=== PATIENT | male | born 2000 | race Caucasian/White ===

== ENCOUNTER 2024-11-22 15:37 | Outpatient (CLI) | payer BC, SELFPAY | END 2024-11-22 15:38 | disposition home or self-care (01) | PROVIDERS: PCP Nurse Practitioner Family; Visit Provider Nurse Practitioner Family | DX: R10.31 Right lower quadrant pain (principal) | CPT/HCPCS: 80048; 85025 ==

== ENCOUNTER 2024-11-23 08:52 | Outpatient (CLI) | payer BC, SELFPAY | END 2024-11-23 08:53 | disposition home or self-care (01) | LOC: KYNREF 08:52 | PROVIDERS: PCP Nurse Practitioner Family; Visit Provider Nurse Practitioner Family | DX: R10.31 Right lower quadrant pain (principal); R82.90 Unspecified abnormal findings in urine | CPT/HCPCS: 81001; 87086 ==

== ENCOUNTER 2024-12-03 15:47 | Outpatient (CLI) | payer BC, SELFPAY ==
--- NOTE | 2024-12-03 16:00 | CRLHL7_ITS ---
For Patients: As a result of the Century Cures Act, medical imaging exams and procedure reports are released immediately into your electronic medical record. You may view this report before your referring provider. If you have questions, please contact your health care provider. INDICATION: Abdominal pain. TECHNIQUE: CT abdomen and pelvis without contrast. COMPARISON: None. FINDINGS: Lower chest: Unremarkable. Liver: Normal in size and attenuation. No suspicious masses. Gallbladder and bile ducts: No stones or inflammation. No biliary dilatation. Pancreas: Unremarkable. No mass or inflammation. Spleen: Normal in size. Small splenule. No masses. Adrenal glands: Normal in size. No nodules. Kidneys: Normal in size. Distal right ureteral calcified stone measuring up to 7 mm with associated mild upstream periureteral inflammatory changes (70, 2/130). No substantial hydronephrosis. Bilateral nonobstructive renal calcifications as well, the largest of which is on the right measuring up to 5 mm (). GI tract: Unremarkable. Normal in caliber. No sign of mass or inflammation. Normal appendix. Vasculature: Abdominal aorta is normal in caliber. Lymph nodes: No lymphadenopathy. Peritoneum/Abdominal Wall: Unremarkable. No sign of mass or infiltration. No free air or significant free fluid. Pelvis: Bladder is unremarkable. Prostate is unremarkable. Bones: Unremarkable for age. IMPRESSION: Distal right ureteral calcified stone measuring up to 7 mm near the UVJ. Associated mild right periureteral inflammatory changes, but no substantial hydronephrosis. Bilateral nonobstructive renal calcifications as well. Please note that all CT scans at this facility use dose modulation, iterative reconstruction, and/or weight-based dosing when appropriate to reduce radiation dose to as low as reasonably achievable. Dictated by Ancelmo Luna MD @ 12/04/2024 9:20:44 PM (Electronically Signed)
== END 2024-12-03 15:48 | disposition home or self-care (01) ==
LOC: CT 15:48
PROVIDERS: PCP Nurse Practitioner Family; Visit Provider Nurse Practitioner Family
DX: R10.31 Right lower quadrant pain (principal); N20.2 Calculus of kidney with calculus of ureter
CPT/HCPCS: 74176

== ENCOUNTER 2024-12-20 08:15 | Outpatient (CLI) | payer BC, SELFPAY | END 2024-12-20 08:16 | disposition home or self-care (01) | LOC: KYNREF 08:17 | PROVIDERS: PCP Nurse Practitioner Family; Visit Provider Nurse Practitioner Family | DX: R10.31 Right lower quadrant pain (principal); R82.90 Unspecified abnormal findings in urine | CPT/HCPCS: 81001; 87086 ==

== ENCOUNTER 2024-12-22 17:21 | Emergency (ER) | payer BC, SELFPAY ==
--- OUTSIDE RECORDS SUMMARY | 2024-12-22 17:23 | XMS_ITS | Data Portability ---
Author Organization [facility], [facility] Address [address] [place] [address] Care Team Providers Care Group Captain Name Role Phone [facility] Primary Care Provider Assessment No assessment recorded. Plan of Treatment Reminders Order Date Submit Date Provider Last Modified By Organization Details Last Modified Time Details Appointments H[facility] 60 2024 10:00A M Curt Glibert MD Not available Not available Not available Lab None recorded. Referral None recorded. Procedures None recorded. Surgeries cystoscop y, with ureterosc opy, with lithotrip sy, with insertion of ureteral stent (SURG) 2024 025 [email or web address] Not available 12/17/2024 13:09:58 Imaging None recorded. Medication Orders tamsulosi n 0.4 mg capsule 2024 025 [id number], [address] [place], [place], [id number], 12/17/2024 11:01:37 Patient TargetsNo targets recorded. Patient InstructionsNo instructions recorded. Reason for Referral None Reported. Problems Name Problem SNOMED Code Status Onset Date Resolution Date Notes Provider Name and Address Organization Details Recorded Time Recurrent kidney stone 89656780925668 02 Active 2024 SARAH CANDELARIO PA-C [address] [place] [address],[facility] [address], [place], [address], [place] [facility] 11:00:44 Ureteric stone 60475132 Active 2024 SARAH CANDELARIO PA-C [address] [place] [address] [address], [place], [address] 11:14:05 Problem Notes None recorded. Medical Equipment None Reported. Allergies No known drug allergies Medications Name Sig Start Date Stop Date Status Note LastModified by Organization Details LastModified Time hydrocodone 5 mg-acetamin ophen 325 mg tablet TAKE 1 TABLET BY MOUTH EVERY 4 TO 6 HOURS NEEDED FOR PAIN FOR 7 DAYS 12/17 completed Not Available Not Available Not Available amoxicillin 500 mg tablet TAKE 1 TABLET BY MOUTH THREE TIMES DAILY UNTIL GONE 12/17 completed Not Available Not Available Not Available tamsulosin 0.4 mg capsule Take 1 capsule every day by oral route with meal(s) for 30 days, for kidney stone passing. 2024 active Not Available Not Available Not Avai lable ibuprofen 600 mg tablet TAKE 1 TABLET BY MOUTH EVERY 6 TO 8 HOURS NEEDED active Not Available Not Available No t Available methylpredn isolone 4 mg tablets in a dose pack FOLLOW PACKAGE DIRECTION S 12/17 completed Not Available Not Available Not Available ondansetron 4 mg disintegrat ing tablet DISSOLVE 1 TABLET ON THE TONGUE EVERY 6 TO 8 HOURS NEEDED FOR NAUSEA OR VOMITING 12/17 completed Not Available Not Available Not Available Vitals Date Recorded Body height Body mass index (BMI) Body weight Provider Name and Address Organization Details Last Updated DateTime 12/17/2024 170.18 cm 25.1 kg/m2 20983.78 g Edelmira Raya [facility] 12/17/2024 10:38:25 Social History Question Answer Notes LastModified by Organizat ion Details LastModified Time Tobacco Smoking Status Never Smoker Edelmira Raya [facility] 12/17/2024 10:39:26 What Is Your Level Of Alcohol Consumption? Occasional Information not available 12/17/2024 What Is Your Level Of Caffeine Consumption? Occasional Information not available 12/17/2024 What Was The Date Of Your Most Recent Tobacco Screening? 12/17/2024 Information not available 12/17/2024 Have You Ever Been Counseled For Unhealthy Alcohol Use? No Information not available 12/17/2024 Do You Use Any Illicit Or Recreational Drugs? No Information not available 12/17/2024 Has Tobacco Cessation Counseling Been Provided? No Information not available 12/17/2024 Do You Or Have You Ever Used Any Other Forms Of Tobacco Or Nicotine? No Information not available 12/17/2024 Sex: Unknown Functional Status None recorded. Mental Status None recorded. Family History Relationship Description Onset Age of this Age Resolved Age Notes LastModified by Organization Details LastModified Time Father No current problems or disability Not available 12/17 10:39:06 Mother No current problems or disability Not available 12/17 10:39:06 Medical History Condition Response Sexually Transmitted Infection N Diabetes N Other N Bleeding Disorder N High Blood Pressure N Kidney Stones Y High Cholesterol N GERD/Acid Reflux N Heart Disease N Cancer N Depression N Lung Disease N Immunizations Vaccine Type Date Status Note Provider Nam e and Address Organization Details Recorded Time Influenza, split virus, trivalent, preservative 1 completed Not Available [facility] 12/17/2024 10:14:16 Hep B, adolescent or pediatric 8 completed Not Available [facility] 12/17/2024 10:14:16 DTaP 9 completed Not Available [facility] 12/17/2024 10:14:16 Hep B, adolescent or pediatric 9 completed Not Available [facility] 12/17/2024 10:14:16 Hib, unspecified formulation 9 completed Not Available [facility] 12/17/2024 10:14:16 IPV 9 completed Not Available [facility] 12/17/2024 10:14:16 rotavirus, pentavalent 9 completed Not Available [facility] 12/17/2024 10:14:16 rotavirus, pentavalent 9 completed Not Available [facility] 12/17/2024 10:14:16 DTaP 9 completed Not Available [facility] 12/17/2024 10:14:16 Hib (PRP-T) 9 completed Not Available [facility] 12/17/2024 10:14:16 IPV 9 completed Not Available [facility] 12/17/2024 10:14:16 rotavirus, pentavalent 9 completed Not Available [facility] 12/17/2024 10:14:16 DTaP 9 completed Not Available [facility] 12/17/2024 10:14:16 Hib (PRP-T) 9 completed Not Available [facility] 12/17/2024 10:14:16 Hep B, adolescent or pediatric 9 completed Not Available [facility] 12/17/2024 10:14:16 MMR 9 completed Not Available [facility] 12/17/2024 10:14:16 varicella 9 completed Not Available [facility] 12/17/2024 10:14:16 DTaP-Hib 0 completed Not Available [facility] 12/17/2024 10:14:16 IPV 0 completed Not Available [facility] 12/17/2024 10:14:16 DTaP 3 completed Not Available [facility] 12/17/2024 10:14:16 IPV 3 completed Not Available [facility] 12/17/2024 10:14:16 MMR 3 completed Not Available [facility] 12/17/2024 10:14:16 varicella 9 completed Not Available [facility] 12/17/2024 10:14:16 Hep A, ped/adol, 2 dose 9 completed Not Available [facility] 12/17/2024 10:14:16 meningococcal MCV4P 0 completed Not Available [facility] 12/17/2024 10:14:16 Tdap 0 completed Not Available [facility] 12/17/2024 10:14:16 Hep A, ped/adol, 2 dose 0 completed Not Available [facility] 12/17/2024 10:14:16 meningococcal MCV4P 5 completed Not Available [facility] 12/17/2024 10:14:16 typhoid, parenteral 6 completed Not Available [facility] 12/17/2024 10:14:16 Tdap 5 completed Not Available [facility] 12/17/2024 10:14:16 Past Encounters Encounter ID Performer Location Encounter Start Date Encounter Closed Date Diagnosis/Indication Diagnosis SNOMED-CT Code Diagnosis ICD10 Code Diagnosis Note [id number] BRETT PALMER[facility] [address] [place] [address] 12/17/2024 10:12:02 12/20/2024 10:24:27 Recurrent kidney stone 4130306090 410724 N20.0 - Recent 12/03 CT did confirm bilateral nonobstruc ting renal calculi- Went over kidney stone passing symptoms- Given how young he is with his recurrent stones, discussed doing a metabolic evaluation after surgery to go over prevention methods Ureteric stone 43690652 N20.1 - Reviewed ED and Urgent care course from last year to now and went over recent CT results- Given duration of time that patient has attempted to pass his kidney stone with medical expulsion therapy, will set patient up for cystoscopy , right ureterosco py with laser lithotrips y, possible right ureteral stent placement- Went over procedure with patient along with risks and benefits- Went over stent expectatio ns along with the temporary nature of stent- Continue flomax until surgery unless he visualizes stone passing. If this occurs, requested patient to contact us so we can cancel surgery Health Concerns Section Related Observation LastModified by Organization Detai ls LastModified Time None Recorded Concern Status LastModified by Organization Details LastModified Time None Recorded Advance Directives Directive None Recorded Payers Encounter Date Sequence Insurance Name Policy Number Policy Cline Covered Member ID Cline Member ID Guarantor Name 12/17/2024 1 [place]: SHIRA MOSER (PPO) [id number] Marc Cutler [id number] Marc Cutler Notes Date Note Type Note Provider Name and Address Organization Details Recorded Time 12/17/2024 text/html Patient is a 24-year-old male with no significant PMH who presents to the urology clinic for c/o kidney stones.Patient presented to [facility] with LLQ pain on 02/10/24. CT then showed a 7mm right inferior pole renal calculus. Recent 12/03/24 showed a 7mm right distal ureteral stone with associated mild right periureteral inflammatory changes but no substantial hydronephrosis. Additional bilateral nonobstructive renal calculi seen, largest up to 5mm on the right. He has had right lower back pain since September of this year. Patient went to the ED on 09/27 and was started on flomax for his 7mm ureteral stone. Currently pain is intermittent at the RLQ. He is currently on flomax for about a month for MET. He does have a family history of kidney stones. He denies use of blood thinners. SARAH CANDELARIO PA-C [address] [place] [address],[facility] [address], [place], [address], [facility] 12/17/2024 11:18:46
--- OUTSIDE RECORDS SUMMARY | 2024-12-22 17:23 | XMS_ITS | Clinical Summary ---
Author Organization [facility] Address [address] [place] [address] Care Team Providers Care Identity Management Consultant Name Role Phone None Primary Care Provider Unavailabl e Allergies No known active allergies Medications MENTHOL/ZINC OXIDE (GOLD MUNGUIA MEDICATED TOP) Apply topically to affected area(s). Active triamcinolone (ARISTOCORT) 0.1 % ointment Apply to affected areas twice a day 1 Tube 0 06/09/20 14 Active ibuprofen (ADVIL; MOTRIN) 600 mg tabletIndications: Kidney stone Take 1 Tablet (600 mg) by mouth every 6 hours if needed for Pain. Maximum of 3200 mg in 24 hours. 30 Tablet 09/27/19 25 Active ondansetron (ZOFRAN ODT) 4 mg disintegrating tabletIndications: Kidney stone Place 2 Tablets (8 mg) on the tongue every 8 hours if needed for Nausea/Vomiting. 12 Tablet 09/27/19 25 Active tamsulosin 0.4 mg capsuleIndications :Kidney stone Take 1 Capsule (0.4 mg) by mouth once daily after a meal. 14 Capsule 09/27/19 25 Active HYDROcodone-acetam inophen (5-325 mg/tablet)Indicati ons:Kidney stone Take 1 Tablet by mouth 4 times daily if needed (Severe Pain). Max acetaminophen dose: 4000 mg in 24 hrs. 6 Tablet 09/27/19 25 Active Encounters Date Type Department Care Team Description 09/27/2024 10:11 AM [employer] - 09/27/2024 3:08 PM [facility] Emergency [facility] [address] [place] [address] Remberto Grande MD Kidney stone (Primary Dx) Discharge Disposition: Home Self Care 09/27/2024 Travel from Last 3 Months Social History Tobacco Use Types Packs/Day Years Used Date Smoking Tobacco: Never Alcohol Use Standard Drinks/Week Comments No 0 (1 standard drink = 0.6 oz pur e alcohol) Interpersonal Safety Answer Date Record ed Are you being hit, kicked, p ushed or yelled at (see row info)? No 09/27/2024 Interpersonal Safety Abuse 12 - 18 Not on file 09/27/2024 Interpersonal Safety Ambulatory Vulnerability No t on file 09/27/2024 Sex and Gender Information Value Date Recorded Sex Assigned at Not on file Legal Sex Male 8:21 AM [employer] Gender Identity Not on file Sexual Orientation Not on file Obstetrics History Last Filed Vital Signs Vital Sign Reading Time Taken Comments Blood Pressure 122/86 09/27/2024 3:00 PM [employer] Pulse 104 09/27/2024 3:00 PM [employer] Temperature 36.2 C (97.2 F) 09/27/2024 8:14 AM [employer] Respiratory Rate 18 09/27/2024 8:13 AM [employer] Oxygen Saturation 96% 09/27/2024 3:00 PM [employer] Inhaled Oxygen Concentration - - Weight 71 kg (156 lb 8 oz) 09/27/2024 8:13 AM CS T Height 167.6 cm (5' 6) 09/27/2024 8:13 AM [employer] Body Mass Index 25.26 09/27/2024 8:13 AM [employer] Plan of Treatment Upcoming Encounters Date Type Department Care Team (Latest Contact Info) Description 12/27/2024 9:55 AM CDT Hospital Encounter [facility] [address] [place] [address] Curt Gilbert MD [address] [place] [address] [place] [address] 12/27/2024 9:55 AM CDT - 12/27/2024 11:34 AM CDT Surgery [facility] [address] [place] [address] Curt Gilbert MD [address] [place] [address] [address] [address] CYSTOSCOPY, RIGHT URETEROSCOPY, HOLMIUM LASER LITHOTRIPSY Scheduled Procedures Name Priority Associated Diagnoses Date/Ti me CYSTOSCOPY URETEROSCOPY LASER Class E Urgent N20.1- ureteral stone 12/27/2024 9:55 AM CDT CYSTOSCOPY PLACEMENT URETERAL STENT Class E Urgent N20.1- ureteral stone 12/27/2024 9:55 AM CDT Health Maintenance Due Date Last Done Comments Tdap 2009 Depression screening for age 12+ 2010 HIV for age 15-65 2013 HPV series for age 9-26 (1 - Male 3-dose series) 2013 BMI (ht and wt on same day) for age 18+ 2016 Hepatitis C screening for ag e 18-79 2016 Tetanus booster 2018 COVID-19 vaccine series ( season) 2024 Influenza Vaccine (Season Ended) 2025 Pneumococcal series for age 6-49 Aged Out No longer eligible based on patient's age to complete this topic Procedures Procedure Name Priority Date/Time Associated Diagnosis Comments URINALYSIS MICROSCOPIC STAT 09/27/2024 1:35 PM [employer] UA W/ SEDIMENT EXAM REFLEXED PER CRITERIA STAT 09/27/2024 1:[address] ABDOMEN PELVIS STONE PROTOCOL WO STAT 09/27/2024 11:41 AM [employer] CBC WITH AUTO DIFFERENTIAL STAT 09/27/2024 10:19 AM [employer] LIPASE STAT 09/27/2024 10:19 AM [employer] HEPATIC FUNCTION PANEL STAT 09/27/2024 10:19 AM [employer] BASIC METABOLIC PANEL STAT 09/27/2024 10:19 AM [employer] CBC WITH AUTO DIFFERENTIAL STAT 09/27/2024 10:19 AM [employer] from Last 3 Months Results * (ABNORMAL) URINALYSIS MICROSCOPIC (09/27/2024 1:35 PM [employer]) RBC 0-2 0-2, None Seen /HPF 09/27/2024 2:21 PM [facility] WBC 3-5 0-2, 3-5, None Seen /HPF 09/27/2024 2:21 PM [facility] BACTERIA Few None Seen, Rare, Few Bacteria/ HPF 09/27/2024 2:21 PM [facility] EPITHELIAL CELLS Few None Seen, Few Epi/HPF 09/27/2024 2:21 PM [facility] Mucus Present 09/27/2024 2:21 PM [facility] CALCIUM OXALATE CRYSTALS Present(A) (none) 09/27/2024 2:21 PM [facility] Urine URINE SPECIMEN / Unknown Non-Blood / Unknown 09/27/2024 1:35 PM [employer] 09/27/2024 1:38 PM [employer] us Remberto Grande MD URINE Final Result [facility] [address] [place] [address] * (ABNORMAL) UA W/ SEDIMENT EXAM REFLEXED PER CRITERIA (09/27/2024 1:35 PM [employer]) COLOR Yellow Yellow Color 09/27/2024 1:55 PM [facility] CLARITY Clear Clear Clarity 09/27/2024 1:55 PM [facility] SPECIFIC GRAVITY,URINE >=1.030(A) 1.010, 1.015, 1.020, 1.025 09/27/2024 1:55 PM [facility] PH,URINE 5.5 6.0, 7.0, 8.0, 5.5, 6.5, 7.5, 8.5 09/27/2024 1:55 PM [facility] UROBILINOGEN, QUALITATIVE Normal Normal EU/dl 09/27/2024 1:55 PM [facility] PROTEIN, URINE 30(A) Negative mg/dL 09/27/2024 1:55 PM [employer] [facility] GLUCOSE, URINE Negative Negative mg/dL 09/27/2024 1:55 PM [employer] [facility] KETONES,URINE Trace(A) Negative mg/dL 09/27/2024 1:55 PM [employer] [facility] BILIRUBIN,URI NE Negative Negative 09/27/2024 1:55 PM [facility] OCCULT BLOOD,URINE Large(A) Negative 09/27/2024 1:55 PM [employer] [facility] NITRITE Negative Negative 09/27/2024 1:55 PM [employer] [facility] LEUKOCYTE ESTERASE Negative Negative 09/27/2024 1:55 PM [employer] [facility] Urine URINE SPECIMEN / Unknown Non-Blood / Unknown 09/27/2024 1:35 PM [employer] 09/27/2024 1:38 PM [employer] Remberto Grande MD URINE Final Result [facility] [address] [place] [address] * CT ABD/PELVIS STONE PROTOCOL WO CONT (09/27/2024 11:41 AM [employer]) Anatomical Region Laterality Modality Abdomen, Pelvis, AORTA, LIVER, SPLEEN Computed Tomography 09/27/2024 12:0 4 PM [employer] Narrative 09/27/2024 12:04 PM [employer] For Patients: As a result of the Century Cures Act, medical imaging exams and procedure reports are released immediately into your electronic medical record. You may view this report before your referring provider. If you have questions, please contact your health care provider. Indication: Abdominal/flank pain, stone suspected Technique: Noncontrast CT of the abdomen and pelvis was obtained. Please note that all CT scans at this facility use dose modulation, iterative reconstruction, and/or weight-based dosing when appropriate to reduce radiation dose to as low as reasonably achievable. Comparison: None. Findings: Lower thorax: Normal. Liver and biliary tree: Normal noncontrast appearance. Gallbladder: Normal. Spleen: Normal noncontrast appearance. Pancreas: Normal noncontrast appearance. Adrenal glands: Normal noncontrast appearance. Kidneys and ureters: Moderate right hydroureteronephrosis with 5 millimeter obstructing calculus in the upper ureter (2/104). Additional nonobstructing bilateral renal calculi measuring up to 4 millimeter on the right (2/92) and 3 millimeter on the left (2/90). Gastrointestinal tract: Normal appendix. No evidence of bowel obstruction. Peritoneal cavity: Nonspecific 1.1 centimeter fatty lesion is seen medial to the sigmoid colon (2/182); this may represent sequela of prior epiploic appendagitis. Bladder: Normal. Pelvic organs: Normal. Vasculature: Normal noncontrast appearance. Lymph nodes: Normal. Abdominal wall: Small fat containing periumbilical hernia. Small fat containing bilateral inguinal hernias. Musculoskeletal: Normal. Impression: 1. Moderate right hydroureteronephrosis with 5 millimeter obstructing calculus in the upper ureter. 2. Additional nonobstructing bilateral renal calculi measuring up to 4 millimeter on the right and 3 millimeter on the left. Please note that all CT scans at this facility use dose modulation, iterative reconstruction, and/or weight-based dosing when appropriate to reduce radiation dose to as low as reasonably achievable. Dictated by Rony Waters MD @ 09/27/2024 12:04:26 PM (Electronically Signed) Procedure Note Manuel Waters MD - 09/27/2024 For Patients: As a result of the 21st Century Cures Act, medical imagingexams and procedure reports are released immediately into your electronicmedical record. You may view this report before your referring provider.If you have questions, please contact your health care provider. Indication: Abdominal/flank pain, stone suspected Technique: Noncontrast CT of the abdomen and pelvis was obtained. Please note that all CT scans at this facility use dose modulation,iterative reconstruction, and/or weight-based dosing when appropriate toreduce radiation dose to as low as reasonably achievable. Comparison: None. Findings: Lower thorax: Normal. Liver and biliary tree: Normal noncontrast appearance. Gallbladder: Normal. Spleen: Normal noncontrast appearance. Pancreas: Normal noncontrast appearance. Adrenal glands: Normal noncontrast appearance. Kidneys and ureters: Moderate right hydroureteronephrosis with 5millimeter obstructing calculus in the upper ureter (2/104). Additionalnonobstructing bilateral renal calculi measuring up to 4 millimeter on theright (2/92) and 3 millimeter on the left (2/90). Gastrointestinal tract: Normal appendix. No evidence of bowel obstruction. Peritoneal cavity: Nonspecific 1.1 centimeter fatty lesion is seen medialto the sigmoid colon (2/182); this may represent sequela of prior epiploicappendagitis. Bladder: Normal. Pelvic organs: Normal. Vasculature: Normal noncontrast appearance. Lymph nodes: Normal. Abdominal wall: Small fat containing periumbilical hernia. Small fat containing bilateral inguinal hernias. Musculoskeletal: Normal. Impression: 1. Moderate right hydroureteronephrosis with 5 millimeter obstructingcalculus in the upper ureter. 2. Additional nonobstructing bilateral renal calculi measuring up to 4millimeter on the right and 3 millimeter on the left. Please note that all CT scans at this facility use dose modulation,iterative reconstruction, and/or weight-based dosing when appropriate toreduce radiation dose to as low as reasonably achievable. Dictated by Rony Waters MD @ 09/27/2024 12:04:26 PM (Electronically Signed) Remberto Grande MD CT Final Result * (ABNORMAL) CBC WITH AUTO DIFFERENTIAL (09/27/2024 10:19 AM [employer]) WHITE BLOOD COUNT 14.0(H) 4.5 - 11.0 thou/cu mm 09/27/2024 10:27 AM [facility] RED BLOOD COUNT 5.58 4.30 - 5.90 mil/cu mm 09/27/2024 10:27 AM [facility] HEMOGLOBIN 16.9 13.5 - 17.5 g/dL 09/27/2024 10:27 AM [facility] HEMATOCRIT 48.5 37.0 - 53.0 % 09/27/2024 10:27 AM [facility] MCV 87 80 - 100 fL 09/27/2024 10:27 AM [facility] MCH 30.3 26.0 - 34.0 pg 09/27/2024 10:27 AM [facility] MCHC 34.8 32.0 - 36.0 g/dL 09/27/2024 10:27 AM [facility] RDW 12.8 11.5 - 15.5 % 09/27/2024 10:27 AM [facility] PLATELET COUNT 198 140 - 440 thou/cu mm 09/27/2024 10:27 AM [facility] MPV 11.2(H) 6.5 - 11.0 fL 09/27/2024 10:27 AM [facility] % NEUT 84.6 % 09/27/2024 10:27 AM [facility] % LYMPH 9.9 % 09/27/2024 10:27 AM [facility] % MONO 5.2 % 09/27/2024 10:27 AM [facility] % EOS 0.1 % 09/27/2024 10:27 AM [facility] % BASO 0.2 % 09/27/2024 10:27 AM [facility] ABSOLUTE NEUTROPHILS 11.8(H) 1.7 - 7.0 thou/cu mm 09/27/2024 10:27 AM [facility] ABSOLUTE LYMPHOCYTES 1.4 0.9 - 2.9 thou/cu mm 09/27/2024 10:27 AM [facility] ABSOLUTE MONOCYTES 0.7 <0.9 thou/cu mm 09/27/2024 10:27 AM [facility] ABSOLUTE EOSINOPHILS 0.0 <0.5 thou/cu mm 09/27/2024 10:27 AM [facility] ABSOLUTE BASOPHILS 0.0 <0.3 thou/cu mm 09/27/2024 10:27 AM [facility] Blood BLOOD SPECIMEN / Unknown Venipuncture / Unknown 09/27/2024 10:19 AM [employer] 09/27/2024 10:22 AM [facility] Remberto Grande MD HEMATOLOGY Final Result [facility] [address] [place] [address] * LIPASE (09/27/2024 10:19 AM [employer]) Pathologist [facility] LIPASE 25.7 13.0 - 60.0 IU/L 09/27/2024 10:42 AM [facility] Blood BLOOD SPECIMEN / Unknown Venipuncture / Unknown 09/27/2024 10:19 AM [employer] 09/27/2024 10:22 AM [employer] Remberto Grande MD CHEMISTRY Final Result Performing Organization Address [facility] Co de Phone Number [facility] [address] [place] [address] * (ABNORMAL) HEPATIC FUNCTION PANEL (09/27/2024 10:19 AM [employer]) Pathologist [facility] ALBUMIN 5.2(H) 4.0 - 4.9 g/dL 09/27/2024 10:42 AM [facility] PROTEIN,TOTAL 8.4(H) 6.0 - 8.0 g/dL 09/27/2024 10:42 AM [facility] BILIRUBIN,TOTAL 0.7 0.0 - 1.2 mg/dL 09/27/2024 10:42 AM [facility] BILIRUBIN,DIRECT 0.3(H) 0.0 - 0.2 mg/dL 09/27/2024 10:42 AM [facility] BILIRUBIN,INDIRE CT 0.4 0.2 - 0.8 mg/dL 09/27/2024 10:42 AM [facility] ALK PHOSPHATASE 91 40 - 129 IU/L 09/27/2024 10:42 AM [facility] ALT (SGPT) 41 10 - 50 IU/L 09/27/2024 10:42 AM [facility] AST (SGOT) 29 10 - 50 IU/L 09/27/2024 10:42 AM [facility] Blood BLOOD SPECIMEN / Unknown Venipuncture / Unknown 09/27/2024 10:19 AM [employer] 09/27/2024 10:22 AM [employer] Remberto Grande MD CHEMISTRY Final Result [facility] [address] [facility] [place] [address] * (ABNORMAL) BASIC METABOLIC PANEL (09/27/2024 10:19 AM [facility]) SODIUM 139 136 - 145 mmol/L 09/27/2024 10:42 AM [facility] POTASSIUM 4.2 3.5 - 5.1 mmol/L 09/27/2024 10:42 AM [facility] CHLORIDE 100 98 - 107 mmol/L 09/27/2024 10:42 AM [facility] CO2,TOTAL 23 22 - 29 mmol/L 09/27/2024 10:42 AM [facility] ANION GAP 16 5 - 18 09/27/2024 10:42 AM [facility] GLUCOSE 115(H) 70 - 99 mg/dL 09/27/2024 10:42 AM [facility] CALCIUM 10.2 8.8 - 10.4 mg/dL 09/27/2024 10:42 AM [facility] Comment: Reference ranges for this test were updated on 07/06/2024 to reflect our healthy population more accurately. Reference range changes are not retroactively applied to results, but previous results using the same methodology can be interpreted in the context of the new reference range. BUN 15 6 - 20 mg/dL 09/27/2024 10:42 AM [facility] CREATININE 1.33(H) 0.70 - 1.20 mg/dL 09/27/2024 10:42 AM [facility] BUN/CREAT RATIO 11 10 - 20 10:42 AM [facility] eGFR 76(L) >90 mL/min/1. 73m2 09/27/2024 10:42 AM [facility] Comment:As of 2021, eG FR is calculated by the CKD-EPI creatinine equation without race adjustment. eGFR can be influenced by muscle mass, exercise, and diet. The reported eGFR is an estimation only and is only applicable if the renal function is stable. Blood BLOOD SPECIMEN / Unknown Venipuncture / Unknown 09/27/2024 10:19 AM [employer] 09/27/2024 10:22 AM [employer] us Remberto Grande MD CHEMISTRY Final Result [facility] [address] [place] [address] from Last [address] [facility] Care Teams Identity Management Consultant Relationship Specialty Start Date End Date None . PCP - General 09/27/24
--- OUTSIDE RECORDS SUMMARY | 2024-12-22 17:23 | XMS_ITS | Continuity of Care Document ---
Author Organization [facility] Address [address] [place] [address] Care Team Providers Care Loom Control Chain Builder Name Role Phone [facility] LOCATION Primary Care Provider Assessment No assessment recorded. Plan of Treatment Reminders Order Date Submit Date Provider Last Modified By Organization Details Last Modified Time Details Appointments HOSPITAL 60 2024 10:00A M Curt Gilbert MD Not available Not available Not available Lab None recorded. Referral None recorded. Procedures None recorded. Surgeries cystoscop y, with ureterosc opy, with lithotrip sy, with insertion of ureteral stent (SURG) 2024 025 [email or web address] Not available 12/17/2024 13:09:58 Imaging None recorded. Medication Orders tamsulosi n 0.4 mg capsule 2024 025 [id number], [address] [place], [place], [id number], 12/17/2024 11:01:37 Patient TargetsNo targets recorded. Patient InstructionsNo instructions recorded. Reason for Referral None Reported. Problems Name Problem SNOMED Code Status Onset Date Resolution Date Notes Provider Name and Address Organization Details Recorded Time Recurrent kidney stone [id number] 02 Active 2024 SARAH CANDELARIO PA-C [address] [place] [address],[address], [phone], [facility] 11:00:44 Ureteric stone 06325227 Active 2024 SARAH CANDELARIO PA-C [address] [place] [address],BLANCA Wu [address] [place] [address], [phone], [facility] 11:14:05 Problem Notes None recorded. Medical [...] Updated DateTime 12/17/2024 170.18 cm 25.1 kg/m2 21771.78 g Edelmira Raya [facility] 12/17/2024 10:38:25 Social History Question Answer Notes LastModified by Organizat ion Details LastModified Time Tobacco Smoking Status Never Smoker Edelmira iniguez [facility] 12/17/2024 10:39:26 What Is [...] available 12/17 10:39:06 Medical History Condition Response Diabetes N Sexually Transmitted Infection N Bleeding Disorder N Other N High Blood Pressure N Kidney Stones Y Cancer N Lung Disease N Depression N High Cholesterol N GERD/Acid Reflux N Heart Disease N Immunizations Vaccine Type Date Status Note Provider Nam e and Address Organization Details Recorded Time Influenza, split virus, trivalent, preservative 1 completed Not Available [facility] 12/17/2024 10:14:16 Hep B, adolescent or pediatric 8 completed Not Available [facility] 12/17/2024 10:14:16 DTaP 9 completed Not Available [facility] 12/17/2024 10:14:16 Hep B, adolescent or pediatric 9 completed Not Available [facility] 12/17/2024 10:14:16 Hib, unspecified formulation 9 completed Not Available [facility] 12/17/2024 10:14:16 IPV 9 completed Not Available [facility] 12/17/2024 10:14:16 rotavirus, pentavalent 9 completed Not Available [facility] 12/17/2024 10:14:16 rotavirus, pentavalent 9 completed Not Available [facility] 12/17/2024 10:14:16 DTaP 9 completed Not Available [facility] 12/17/2024 10:14:16 Hib (PRP-T) 9 completed Not Available [facility] 12/17/2024 10:14:16 IPV 9 completed Not Available [facility] 12/17/2024 10:14:16 rotavirus, pentavalent 9 completed Not Available [facility] 12/17/2024 10:14:16 DTaP 9 completed Not Available [facility] 12/17/2024 10:14:16 Hib (PRP-T) 9 completed Not Available [facility] 12/17/2024 10:14:16 Hep B, adolescent or pediatric 9 completed Not Available [facility] 12/17/2024 10:14:16 MMR 9 completed Not Available [facility] 12/17/2024 10:14:16 varicella 9 completed Not Available [facility] 12/17/2024 10:14:16 DTaP-Hib 0 completed Not Available [facility] 12/17/2024 10:14:16 IPV 0 completed Not Available [facility] 12/17/2024 10:14:16 DTaP 3 completed Not Available [facility] 12/17/2024 10:14:16 IPV 3 completed Not Available [facility] 12/17/2024 10:14:16 MMR 3 completed Not Available [facility] 12/17/2024 10:14:16 varicella 9 completed Not Available [facility] 12/17/2024 10:14:16 Hep A, ped/adol, 2 dose 9 completed Not Available [facility] 12/17/2024 10:14:16 meningococcal MCV4P 0 completed Not Available [facility] 12/17/2024 10:14:16 Tdap 0 completed Not Available [facility] 12/17/2024 10:14:16 Hep A, ped/adol, 2 dose 0 completed Not Available [facility] 12/17/2024 10:14:16 meningococcal MCV4P 5 completed Not Available [facility] 12/17/2024 10:14:16 typhoid, parenteral 6 completed Not Available [facility] 12/17/2024 10:14:16 Tdap 5 completed Not Available [facility] 12/17/2024 10:14:16 Past Encounters Encounter ID Performer Location Encounter Start Date Encounter Closed Date Diagnosis/Indication Diagnosis SNOMED-CT Code Diagnosis ICD10 Code Diagnosis Note [id number] SARAH CANDELARIO PA-C [facility] [address] [place] [phone] 12/17/2024 10:12:02 12/20/2024 10:24:27 Recurrent kidney stone [id number] 450676 N20.0 - Recent 12/03 CT did confirm bilateral nonobstruc ting renal calculi- Went over kidney stone passing symptoms- Given how young he is with his recurrent stones, discussed doing a metabolic evaluation after surgery to go over prevention methods Ureteric stone 16036671 N20.1 - Reviewed ED and Urgent care [...] by Organization Details LastModified Time None Recorded Payers Encounter Date Sequence Insurance Name Policy Number Policy Cline Covered Member ID Cline Member ID Guarantor Name 12/17/2024 1 [employer] SHIRA MOSER (PPO) [id number] Marc Cutler [id number] Marc Cutler Notes Date Note Type Note Provider Name and Address Organization Details Recorded Time 12/17/2024 text/html Patient is a 24-year-old male with no significant PMH who presents to the urology clinic for c/o kidney stones.Patient presented to [facility] with LLQ pain on 02/10/24. [...] use of blood thinners. SARAH CANDELARIO PA-C [address] [place] [address],[address], [place], [address], [facility] 12/17/2024 11:18:46
[2024-12-22 17:28] VITALS: BP 134/93; PULSE 107; RESP 20; TEMP 37; O2SAT 97; BMI 24.1
--- NOTE | 2024-12-22 17:37 | CRLHL7_ITS ---
For Patients: As a result of the Century Cures Act, medical imaging exams and procedure reports are released immediately into your electronic medical record. You may view this report before your referring provider. If you have questions, please contact your health care provider. INDICATION: Kidney stone, concern for obstruction. TECHNIQUE: CT abdomen and pelvis without contrast. COMPARISON: December 03, 2024. FINDINGS: Lower chest: Scattered atelectasis. Liver: Normal in size and attenuation. No suspicious masses. Gallbladder and bile ducts: No stones or inflammation. No biliary dilatation. Pancreas: Unremarkable. No mass or inflammation. Spleen: Normal in size. No masses. Adrenal glands: Normal in size. No nodules. Kidneys: Moderate right-sided hydroureteronephrosis secondary to 3 millimeter obstructing right UVJ stone. Few additional nonobstructing bilateral renal stones. GI tract: Unremarkable. Normal in caliber. No sign of mass or inflammation. Normal appendix. Vasculature: Abdominal aorta is normal in caliber. Lymph nodes: No lymphadenopathy. Peritoneum/Abdominal Wall: Unremarkable. No sign of mass or infiltration. No free air or significant free fluid. Pelvis: Unremarkable. No pelvic masses. Bones: Unremarkable for age. IMPRESSION: Moderate right-sided hydronephrosis secondary to 3 millimeter obstructing right UVJ stone. Few additional nonobstructing bilateral renal stones. Please note that all CT scans at this facility use dose modulation, iterative reconstruction, and/or weight-based dosing when appropriate to reduce radiation dose to as low as reasonably achievable. Dictated by Brandon Hair MD @ 12/22/2024 6:22:45 PM (Electronically Signed)
--- NOTE | 2024-12-22 17:48 | ED.GENADULT ---
HPI - General Adult General Chief complaint: Abdominal Pain <Baljit Doan DO - Last Filed: 12/22/24 20:32> Stated complaint: Kidney Stone Pain <Baljit Doan DO - Last Filed: 12/22/24 20:32> Time Seen by Provider: 12/22/24 17:23 <Baljit Doan DO - Last Filed: 12/22/24 20:32> Source: patient <Baljit Doan DO - Last Filed: 12/22/24 20:32> Mode of arrival: ambulatory <Baljit Doan DO - Last Filed: 12/22/24 20:32> Limitations: no limitations <Baljit Doan DO - Last Filed: 12/22/24 20:32> History of Present Illness HPI narrative: Patient is a 24-year-old male presenting to the emergency department for right-sided flank pain. He was diagnosed with a kidney stone back in September an outside hospital and has been seen [facility] for this. States the pain is been worse today about a 6 to 8/10 on average. Has taken [place] and Zofran home with minimal improvement in his pain. He spoke to [facility] and they recommended he come to the emergency department immediately for a CT scan to assess for obstruction. Patient has not been able to urinate much. Does states he was finally able to urinate a small amount around 3. Does not been eating or drinking much today due to the pain and nausea. As I was asking more questions his father states that they were told patient is a CT scan that have check for obstruction. <Baljit Doan DO - Last Filed: 12/22/24 20:32> Related Data Home medications: Home Medications ?Medication ?Instructions ?Recorded ?Confirmed ibuprofen PO 02/10/24 12/20/24 tamsulosin 0.4 mg capsule 0.4 mg PO PRN 11/22/24 12/20/24 Previous Rx's ?Medication ?Instructions ?Recorded ondansetron 4 mg disintegrating 4 mg PO Q6-8H PRN nausea and 11/22/24 tablet vomiting #16 tabs tamsulosin 0.4 mg capsule (Flomax) 0.4 mg PO QDAY #28 caps 12/05/24 <Baljit Doan DO - Last Filed: 12/22/24 20:32> Allergies/adverse reactions: Allergies Allergy/AdvReac Type Severity Reaction Status Date / Time No Known Drug Allergies Allergy Verified 12/20/24 08:08 <Baljit Doan DO - Last Filed: 12/22/24 20:32> Review of Systems Narrative: Pertinent systems reviewed and were negative unless stated in HPI <Baljit Doan DO - Last Filed: 12/22/24 20:32> PFSH PFSH Surgical History: Surgical History H/O wisdom tooth extraction ?K08.409 - Partial loss of teeth, unspecified cause, unspecified class (ICD-10) <Baljit Doan DO - Last Filed: 12/22/24 20:32> Family History: Family History Father Melanoma Maternal Grandmother Kidney stones Paternal Grandmother Breast cancer Pancreatic cancer Maternal Grandfather Clotting disorder <Baljit Doan DO - Last Filed: 12/22/24 20:32> Social History: Social History Narrative: Single, girlfriend. No children. Alcohol, occasionally. No illicit drug use. Non-smoker. 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 Smoking Status: Never smoker How often do you have a drink containing alcohol: never AUDIT-C Alcohol total score: 0 Non-prescribed substance use: denies use <Baljit Doan DO - Last Filed: 12/22/24 20:32> Exam Narrative: Exam Narrative: Const: Well-nourished, Well-developed, in moderate distress Eyes: PERRL, no conjunctival injection, and symmetrical lids HENT: Atraumatic external nose and ears. Moist mucous membranes. Neck: Symmetric, trachea midline, No thyromegaly. CVS: RRR, No murmurs or gallops. Peripheral pulses 2+ and equal in all extremities RESP: Unlabored respiratory effort. Clear to auscultation bilaterally. GI: Nontender/Nondistended, No rebound or guarding. MSK:Extremities w/o deformity, Normal Active ROM Skin: Warm, Dry. No rashes or lesions. Neuro: Normal Muscle tone, No focal neurological deficits. Psych: Awake, Alert, & Oriented x3. Appropriate mood and affect. <Baljit Doan DO - Last Filed: 12/22/24 20:32> Const: Vital Signs, click to edit/add: Vital Signs - 24 hr 12/22/24 17:28 12/22/24 18:35 Temperature 98.6 F Pulse Rate [Femora l] 107 H Respiratory Rate 20 Blood Pressure [Ri ght Upper Arm] 134/93 H Pulse Oximetry 97 98 Oxygen Delivery Me thod Room Air <Baljit Doan DO - Last Filed: 12/22/24 20:32> Vital Signs, click to edit/add: Vital Signs - 24 hr 12/22/24 17:28 12/22/24 18:35 Temperature 98.6 F Pulse Rate [Femora l] 107 H Respiratory Rate 20 Blood Pressure [Ri ght Upper Arm] 134/93 H Pulse Oximetry 97 98 Oxygen Delivery Me thod Room Air <Mehreen De La Rosa MD - Last Filed: 12/22/24 20:44> Course Reevaluation(s) Time of Reevaluation #1: 20:43 <Mehreen De La Rosa MD - Last Filed: 12/22/24 20:44> Reevaluation #1: Urinalysis result reviewed after Dr. Doan left. No evidence of infection based on urinalysis. Patient remains afebrile and hemodynamically stable. Pain is currently controlled finally but has required IV morphine. <Mehreen De La Rosa MD - Last Filed: 12/22/24 20:44> Vital Signs Vital signs: Initial Vital Signs Temperature 98.6 F 12/22/24 17:28 Temperature Source Temporal Artery Scan 12/22/24 17:28 Pulse Rate 107 H 12/22/24 17:28 Respiratory Rate 20 12/22/24 17:28 Blood Pressure 134/93 H 12/22/24 17:28 Blood Pressure Mean 106 H 12/22/24 17:28 Blood Pressure Position Sitting 12/22/24 17:28 Pulse Oximetry 97 12/22/24 17:28 Oxygen Delivery Method Room Air 12/22/24 17:28 Vital Signs Temperature 98.6 F 12/22/24 17:28 Pulse Rate 107 H 12/22/24 17:28 Respiratory Rate 20 12/22/24 17:28 Blood Pressure 134/93 H 12/22/24 17:28 Pulse Oximetry 97 12/22/24 17:28 Oxygen Delivery Method Room Air 12/22/24 17:28 Temperature 98.6 F 12/22/24 17:28 Pulse Rate 107 H 12/22/24 17:28 Respiratory Rate 20 12/22/24 17:28 Blood Pressure 134/93 H 12/22/24 17:28 Pulse Oximetry 98 12/22/24 18:35 Oxygen Delivery Method Room Air 12/22/24 17:28 <Baljit Doan DO - Last Filed: 12/22/24 20:32> Initial Vital Signs Temperature 98.6 F 12/22/24 17:28 Temperature Source Temporal Artery Scan 12/22/24 17:28 Pulse Rate 107 H 12/22/24 17:28 Respiratory Rate 20 12/22/24 17:28 Blood Pressure 134/93 H 12/22/24 17:28 Blood Pressure Mean 106 H 12/22/24 17:28 Blood Pressure Position Sitting 12/22/24 17:28 Pulse Oximetry 97 12/22/24 17:28 Oxygen Delivery Method Room Air 12/22/24 17:28 Vital Signs Temperature 98.6 F 12/22/24 17:28 Pulse Rate 107 H 12/22/24 17:28 Respiratory Rate 20 12/22/24 17:28 Blood Pressure 134/93 H 12/22/24 17:28 Pulse Oximetry 97 12/22/24 17:28 Oxygen Delivery Method Room Air 12/22/24 17:28 Temperature 98.6 F 12/22/24 17:28 Pulse Rate 107 H 12/22/24 17:28 Respiratory Rate 20 12/22/24 17:28 Blood Pressure 134/93 H 12/22/24 17:28 Pulse Oximetry 98 12/22/24 18:35 Oxygen Delivery Method Room Air 12/22/24 17:28 <Mehreen De La Rosa MD - Last Filed: 12/22/24 20:44> Medications Administered Medications: Discontinued Medications Generic Name Dose Route Start Last Admin Trade Name Freq PRN Reason Stop Dose Admin Morphine Sulfate 4 mg 12/22/24 19:02 12/22/24 19:20 Morphine 4 Mg/Ml Inj IVP 12/22/24 19:03 4 mg ONCE ONE Administration Oxycodone HCl 5 mg 12/22/24 17:37 12/22/24 17:59 Oxycodone 5 Mg Tablet PO 12/22/24 17:38 5 mg ONCE ONE Administration <Baljit Doan DO - Last Filed: 12/22/24 20:32> Discontinued Medications Generic Name Dose Route Start Last Admin Trade Name Lori PRN Reason Stop Dose Admin Morphine Sulfate 4 mg 12/22/24 19:02 12/22/24 19:20 Morphine 4 Mg/Ml Inj IVP 12/22/24 19:03 4 mg ONCE ONE Administration Oxycodone HCl 5 mg 12/22/24 17:37 12/22/24 17:59 Oxycodone 5 Mg Tablet PO 12/22/24 17:38 5 mg ONCE ONE Administration <Mehreen De La Rosa MD - Last Filed: 12/22/24 20:44> Medical Decision Making [facility] Narrative Medical decision making narrative: Patient is a 24-year-old male presenting for right flank pain. He has a known kidney stone and they stated that they were told do CT scan immediately. Further questions cut off his the patient's father reiterated that needs to CT scan immediately for this. CT scan ordered. Oral oxycodone was given. He did not want any Zofran. Offered IV for medications but patient declined at this time. CT scan returned showing the previously seen right moderate hydroureter nephrosis in the obstructing stone. Based on review through epic the stone has moved from the upper ureter down to the UVJ. It is likely it got obstructed here again and that is what is causing his pain. I did speak to the on-call provider for [facility]. She is agreeable that the patient should be transferred for pain control. At this time we still do not have a urine but no clinical signs of an infection. I did give him a dose of morphine to help manage his pain. He states now the pain is a 5/10 but he still appears very uncomfortable. I spoke to the on-call hospitalist, , for [facility] been accepted the patient for transfer. <Baljit Doan DO - Last Filed: 12/22/24 20:32> Lab Data Labs: Lab Results 12/22/24 12/22/24 Range/Units 19:14 20:18 WBC 11.73 H (4.50-11.00) K/uL RBC 5.31 (4.30-5.90) m/uL Hgb 15.6 (13.5-17.5) gm/dL Hct 45.4 (37.0-53.0) % MCV 86 (80-100) fL MCH 29 (26-34) pg MCHC 34 (32-36) gm/dL RDW Coeff of Heather 12.0 (11.5-15.5) % Plt Count 169 (140-440) K/uL Neut % (Auto) 84.8 H (42.0-72.0) % Lymph % (Auto) 8.3 L (20-44) % [place] % (Auto) 6.6 (0.0-11.0) % Eos % (Auto) 0.1 (0.0-7.0) % Baso % (Auto) 0.1 (0.0-3.0) % Neut # (Auto) 9.90 H (1.7-7.0) K/uL Lymph # (Auto) 1.00 (0.90-2.90) K/uL [place] # (Auto) 0.80 (0.00-0.90) K/UL Eos # (Auto) 0.00 (0.00-0.50) K/uL Baso # (Auto) 0.00 (0.00-0.30) K/uL Abs Immat Gran (auto) 0.00 (0.00-0.30) K/uL Imm/Tot Granulo (auto) 0.1 % Sodium 136 (135-149) mmol/L Potassium 4.3 (3.6-5.1) mmol/L Chloride 101 (96-114) mmol/L Carbon Dioxide 23 (20-32) mmol/L Anion Gap 12 (7-15) mEq/L BUN 14 (5-24) mg/dL Creatinine 1.5 (0.5-1.5) mg/dL Estimated Creat Clear 69.77 Estimated GFR 65 ml/min Glucose 104 (60-115) mg/dL Calcium 9.7 (8.4-10.6) mg/dL Urine Color Yellow (Yellow) Urine Appearance Clear (Clear) Urine pH 6.0 (5.0-8.5) Ur Specific [place] 1.020 (1.000-1.030) Urine Protein Negative (Negative) Urine Glucose (UA) Negative (Negative) Urine Ketones 3+ A (Negative) Urine Blood 2+ A (Negative) Urine Nitrite Negative (Negative) Urine Bilirubin Negative (Negative) Urine Urobilinogen 0.2 (0.2-1.0) Ur Leukocyte Esterase Negative (Negative) Urine RBC 5-10 A (0-2) Urine WBC 0-2 (0-5) Ur Squamous Epith Cells None (None-Few) Urine Bacteria None (None) <Baljit Doan, DO - Last Filed: 12/22/24 20:32> Lab Results 12/22/24 12/22/24 Range/Units 19:14 20:18 WBC 11.73 H (4.50-11.00) K/uL RBC 5.31 (4.30-5.90) m/uL Hgb 15.6 (13.5-17.5) gm/dL Hct 45.4 (37.0-53.0) % MCV 86 (80-100) fL MCH 29 (26-34) pg MCHC 34 (32-36) gm/dL RDW Coeff of Heather 12.0 (11.5-15.5) % Plt Count 169 (140-440) K/uL Neut % (Auto) 84.8 H (42.0-72.0) % Lymph % (Auto) 8.3 L (20-44) % [place] % (Auto) 6.6 (0.0-11.0) % Eos % (Auto) 0.1 (0.0-7.0) % Baso % (Auto) 0.1 (0.0-3.0) % Neut # (Auto) 9.90 H (1.7-7.0) K/uL Lymph # (Auto) 1.00 (0.90-2.90) K/uL [place] # (Auto) 0.80 (0.00-0.90) K/UL Eos # (Auto) 0.00 (0.00-0.50) K/uL Baso # (Auto) 0.00 (0.00-0.30) K/uL Abs Immat Gran (auto) 0.00 (0.00-0.30) K/uL Imm/Tot Granulo (auto) 0.1 % Sodium 136 (135-149) mmol/L Potassium 4.3 (3.6-5.1) mmol/L Chloride 101 (96-114) mmol/L Carbon Dioxide 23 (20-32) mmol/L Anion Gap 12 (7-15) mEq/L BUN 14 (5-24) mg/dL Creatinine 1.5 (0.5-1.5) mg/dL Estimated Creat Clear 69.77 Estimated GFR 65 ml/min Glucose 104 (60-115) mg/dL Calcium 9.7 (8.4-10.6) mg/dL Urine Color Yellow (Yellow) Urine Appearance Clear (Clear) Urine pH 6.0 (5.0-8.5) Ur Specific [place] 1.020 (1.000-1.030) Urine Protein Negative (Negative) Urine Glucose (UA) Negative (Negative) Urine Ketones 3+ A (Negative) Urine Blood 2+ A (Negative) Urine Nitrite Negative (Negative) Urine Bilirubin Negative (Negative) Urine Urobilinogen 0.2 (0.2-1.0) Ur Leukocyte Esterase Negative (Negative) Urine RBC 5-10 A (0-2) Urine WBC 0-2 (0-5) Ur Squamous Epith Cells None (None-Few) Urine Bacteria None (None) <Mehreen De La Rosa MD - Last Filed: 12/22/24 20:44> Imaging Data CT scan abdomen pelvis: Radiologist's impression: Moderate right-sided hydronephrosis secondary to 3 millimeter obstructing right UVJ stone. Few additional nonobstructing bilateral renal stones. Please note that all CT scans at this facility use dose modulation, iterative reconstruction, and/or weight-based dosing when appropriate to reduce radiation dose to as low as reasonably achievable. <Baljit Doan DO - Last Filed: 12/22/24 20:32> Discharge Plan Discharge Clinical Impression: Kidney stones <Baljit Doan DO - Last Filed: 12/22/24 20:32> Patient Disposition: [facility] <Baljit Doan DO - Last Filed: 12/22/24 20:32> Condition: Stable <Baljit Doan DO - Last Filed: 12/22/24 20:32> Prescriptions: No Action tamsulosin 0.4 mg capsule 0.4 mg PO PRN ondansetron 4 mg tablet,disintegrating 4 mg PO Q6-8H PRN (Reason: nausea and vomiting) Qty: 16 0RF ibuprofen PO tamsulosin [Flomax] 0.4 mg capsule 0.4 mg PO QDAY Qty: 28 0RF <Baljit Doan DO - Last Filed: 12/22/24 20:32> Stand Alone Forms: MyHealth Info Instructions <Baljit Doan DO - Last Filed: 12/22/24 20:32>
[2024-12-22] MEDS: OXYCODONE 5 MG TABLET PO (17:59)
[2024-12-22 18:35] VITALS: O2SAT 98
[2024-12-22] MEDS: MORPHINE 4 MG/ML INJ IVP (19:20)
[2024-12-22 19:22] LABS: Basophils Percent Auto 0.1 % (0.0-3.0); Eosinophils Percent Auto 0.1 % (0.0-7.0); Hematocrit 45.4 % (37.0-53.0); Hemoglobin* 15.6 gm/dL (13.5-17.5); Immature Granulocytes Pct Auto 0.1 %; Lymphocytes Percent Auto 8.3 % (20-44); Mean Corpuscular HGB Conc 34 gm/dL (32-36); Mean Corpuscular Hemoglobin 29 pg (26-34); Mean Corpuscular Volume 86 fL (80-100); Monocytes Percent Auto 6.6 % (0.0-11.0); Neutrophils Percent Auto 84.8 % (42.0-72.0); Platelet Count* 169 K/uL (140-440); Red Blood Count 5.31 m/uL (4.30-5.90); White Blood Count* 11.73 K/uL (4.50-11.00)
[2024-12-22 19:27] LABS: Slide Review Reflex No
[2024-12-22 19:36] LABS: Chloride* 101 mmol/L (96-114); Potassium* 4.3 mmol/L (3.6-5.1); Sodium* 136 mmol/L (135-149)
[2024-12-22 19:39] LABS: Anion Gap 12 mEq/L (7-15); Blood Urea Nitrogen* 14 mg/dL (5-24); Calcium* 9.7 mg/dL (8.4-10.6); Carbon Dioxide* 23 mmol/L (20-32); Creatinine* 1.5 mg/dL (0.5-1.5); Est. Creatinine Clearance* 69.77; Estimated Glomerular Filt Rate 65 ml/min; Glucose* 104 mg/dL (60-115)
[2024-12-22] MEDS: LACTATED RINGERS 1000 ML 1,000 ML IV (19:40)
[2024-12-22 20:25] LABS: Appearance Urine Clear (Clear); Bilirubin Urine Negative (Negative); Blood Urine 2+ (Negative); Color Urine Yellow (Yellow); Glucose Urine Negative (Negative); Ketones Urine 3+ (Negative); Leukocyte Esterase Urine Negative (Negative); Nitrite Urine Negative (Negative); Protein Urine Negative (Negative); Urobilinogen Urine 0.2 (0.2-1.0)
[2024-12-22 20:41] LABS: WBC Urine 0-2 (0-5)
[2024-12-22 20:54] VITALS: BP 135/86; PULSE 82; RESP 18; TEMP 37.1; O2SAT 98
[2024-12-22] MEDS: MORPHINE 2 MG/ML inj IVP (20:55)
[2024-12-22 22:36] VITALS: BP 142/97; PULSE 100; RESP 18; TEMP 37.1; O2SAT 99
== END 2024-12-22 22:39 | disposition short-term general hospital (02) ==
PROVIDERS: Emergency Provider Student in an Organized Health Care Education/Training Program; PCP Nurse Practitioner Family
DX: N13.2 Hydronephrosis with renal and ureteral calculous obstruction (principal)
CPT/HCPCS: 36415; 74176; 80048; 81001; 85025; 94761; 96374; 96376; 99284; A9270; J2270; J7120

== ENCOUNTER 2025-01-21 12:45 | Outpatient (CLI) | payer BC, SELFPAY ==
--- NOTE | 2025-01-21 13:00 | CRLHL7_ITS ---
For Patients: As a result of the Century Cures Act, medical imaging exams and procedure reports are released immediately into your electronic medical record. You may view this report before your referring provider. If you have questions, please contact your health care provider. CLINICAL HISTORY: Presence of urogenital implant COMPARISON: CT 12/22/2024 TECHNIQUE: Qureshi scale and color Doppler images were acquired of the kidneys and urinary bladder. FINDINGS: Sonographic images reveal a symmetric appearance of the kidneys. There is no evidence of hydronephrosis, mass or calculus. The right kidney measures 10.3cm in length and the left kidney measures 11.1cm in length. The renal cortex appears of normal thickness. The urinary bladder appears normal. Color Doppler images reveal a normal appearance of both ureteral jets. There is no evidence of bladder calculi or diverticula. Prevoid bladder volume 127 cc. Postvoid bladder volume 4 cc. IMPRESSION: Normal renal ultrasound. Resolution of previously noted right-sided obstruction. Dictated by Ancelmo Ceron MD @ 01/25/2025 9:28:49 AM (Electronically Signed)
== END 2025-01-21 12:46 | disposition home or self-care (01) ==
PROVIDERS: PCP Nurse Practitioner Family; Visit Provider Urology
DX: Z96.0 Presence of urogenital implants (principal)
CPT/HCPCS: 76770

== ENCOUNTER 2025-02-07 08:26 | Outpatient (CLI) | payer BC, SELFPAY ==
[2025-02-07 13:46] LABS: Chloride* 103 mmol/L (96-114); Sodium* 140 mmol/L (135-149)
[2025-02-07 13:47] LABS: Potassium* 4.2 mmol/L (3.6-5.1)
[2025-02-07 13:49] LABS: Anion Gap 10 mEq/L (7-15); Blood Urea Nitrogen* 15 mg/dL (5-24); Carbon Dioxide* 27 mmol/L (20-32)
[2025-02-07 13:50] LABS: Calcium* 9.4 mg/dL (8.4-10.6); Uric Acid* 8.1 mg/dL (2.2-8.4)
== END 2025-02-07 08:27 | disposition home or self-care (01) ==
LOC: NPINS 08:30
PROVIDERS: PCP Nurse Practitioner Family; Visit Provider Urology
DX: N20.0 Calculus of kidney (principal)
CPT/HCPCS: 80051; 82310; 84520; 84550

== ENCOUNTER 2025-04-29 09:35 | Outpatient (CLI) | payer BC, SELFPAY ==
[2025-04-29 14:58] LABS: Appearance Urine Clear (Clear)
== END 2025-04-29 09:36 | disposition home or self-care (01) ==
LOC: NPINS 09:38
PROVIDERS: PCP Nurse Practitioner Family; Visit Provider Urology
DX: R35.0 Frequency of micturition (principal)
CPT/HCPCS: 81001; 87086

== ENCOUNTER 2025-05-06 15:54 | Outpatient (CLI) | payer BC, SELFPAY ==
--- NOTE | 2025-05-06 16:00 | CRLHL7_ITS ---
For Patients: As a result of the Century Cures Act, medical imaging exams and procedure reports are released immediately into your electronic medical record. You may view this report before your referring provider. If you have questions, please contact your health care provider. INDICATION: Calculus of kidney TECHNIQUE: CT abdomen and pelvis without contrast. COMPARISON: CT 12/22/2024 FINDINGS: Lower chest: Small right perifissural micronodule unchanged. Liver: Normal in size and attenuation. No suspicious masses. Gallbladder and bile ducts: No stones or inflammation. No biliary dilatation. Pancreas: Unremarkable. No mass or inflammation. Spleen: Normal in size. No masses. Adrenal glands: Normal in size. No nodules. Kidneys: Punctate nonobstructing left renal calculus. No hydronephrosis on the right previous UVJ stone no longer seen. GI tract: Unremarkable. Normal in caliber. No sign of mass or inflammation. Normal appendix. Vasculature: Abdominal aorta is normal in caliber. Lymph nodes: No lymphadenopathy. Peritoneum/Abdominal Wall: Unremarkable. No sign of mass or infiltration. No free air or significant free fluid. Pelvis: Unremarkable. No pelvic masses urinary bladder incompletely distended unremarkable. Bones: Unremarkable for age. IMPRESSION: 1. Previous right hydronephrosis and right UVJ stone has resolved. Punctate nonobstructing left-sided renal calculus. Please note that all CT scans at this facility use dose modulation, iterative reconstruction, and/or weight-based dosing when appropriate to reduce radiation dose to as low as reasonably achievable. Dictated by Ludivina Maldonado MD @ 05/08/2025 8:41:35 AM (Electronically Signed)
== END 2025-05-06 15:55 | disposition home or self-care (01) ==
LOC: CT 15:54
PROVIDERS: PCP Nurse Practitioner Family; Visit Provider Urology
DX: N20.0 Calculus of kidney (principal)
CPT/HCPCS: 74176